=== PATIENT | male | born 1990 | race Two or more races ===

== ENCOUNTER 2022-06-19 04:01 | Emergency (ER) | payer MEDICAID ==
[~2022-06-19] VITALS: Ht 172.7 cm; Wt 91.6 kg
[2022-06-19 04:14] VITALS: BP 146/69
[2022-06-19] MEDS ORDERED: AMOX500T86 PO (04:19)
[2022-06-19] MEDS ORDERED: TETANUS-DIPTH-ACEL PERTUSSIS 0.5ML SYR Tdap IM ONE (04:30)
== END 2022-06-19 04:16 ==
LOC: EEVIPCON 04:01 → ER 04:01 → EDBD 04:01 → ER 04:16
DX: S61.451A Open bite of right hand, initial encounter (principal); Z88.1 Allergy status to other antibiotic agents; W50.3XXA Accidental bite by another person, initial encounter; Y93.89 Activity, other specified; Y92.89 Other specified places as the place of occurrence of the external cause; Y99.8 Other external cause status